=== PATIENT | male | born 1950 | race Caucasian/White ===

== ENCOUNTER 2019-02-11 09:22 | Outpatient (RCR) | payer OTHER, SELFPAY | END 2019-02-20 23:59 | disposition home or self-care (01) | LOC: INF 09:22 | PROVIDERS: Visit Provider Internal Medicine Hematology & Oncology | DX: R69 Illness, unspecified (principal) ==

== ENCOUNTER 2019-03-19 04:49 | Outpatient (RCR) | payer MEDICARE, OTHER, SELFPAY ==
[2019-03-05 09:57] LABS: Abs Immature Grans 0.01 k/cumm (0.0-0.09); Absolute Basophil Count 0.03 k/cumm (0.0-0.2); Absolute Lymphocyte Count 1.45 k/cumm (1.2-3.4); Absolute Monocyte Count 0.53 k/cumm (0.11-0.7); Absolute Neutrophil Count 2.22 k/cumm (1.2-6.7); Basophils % 0.7; Eosinophils % 4.5; HCT 37.1 % (40.0-50.0); HGB 11.6 g/dL (13.5-17.5); Immature Grans % 0.2; Lymphocytes % 32.7; Mean Corp. HGB Concentration 31.3 g/dL (32.0-36.0); Mean Corpuscular Hemoglobin 27.2 pg (27.0-33.0); Mean Corpuscular Volume 86.9 fL (80-95); Monocytes % 11.9; Platelet Count 197 x1000/uL (130-400); RBC 4.27 m/cumm (4.50-6.00); White Blood Cell Count 4.44 k/cumm (4.4-10.8)
[2019-03-05 10:07] LABS: ALT 27 U/L (16-63); AST 25 U/L (15-37); Albumin 3.5 g/dL (3.4-5.0); Alkaline Phosphatase 86 U/L (46-116); BUN 16 mg/dL (7-18); Bilirubin, Total 0.5 mg/dL (0.2-1.0); CREATININE 0.97 mg/dL (0.70-1.30); Chloride 105 mmol/L (98-107); Glucose 140 mg/dL (74-106); Potassium 3.6 mmol/L (3.5-5.1); Sodium 142 mmol/L (136-145); Total Protein 7.3 g/dL (6.4-8.2)
[2019-03-05] MEDS: Heparin 500 UNITS/5 ML SYRINGE IV (10:23)
[2019-03-05] MEDS: Normal Saline Flush 10 ML SYR IVP (10:23)
[2019-03-12] MEDS: Heparin 500 UNITS/5 ML SYRINGE IV (07:45)
[2019-03-12] MEDS: Normal Saline Flush 10 ML SYR IVP (07:45)
[2019-03-12 08:03] LABS: Abs Immature Grans 0.01 k/cumm (0.0-0.09); Absolute Basophil Count 0.01 k/cumm (0.0-0.2); Absolute Eosinophil Count 0.23 k/cumm (0.0-0.7); Absolute Lymphocyte Count 0.78 k/cumm (1.2-3.4); Absolute Monocyte Count 0.59 k/cumm (0.11-0.7); Absolute Neutrophil Count 3.47 k/cumm (1.2-6.7); Basophils % 0.2; Eosinophils % 4.5; HCT 34.6 % (40.0-50.0); HGB 10.9 g/dL (13.5-17.5); Immature Grans % 0.2; Lymphocytes % 15.3; Mean Corp. HGB Concentration 31.5 g/dL (32.0-36.0); Mean Corpuscular Volume 88.9 fL (80-95); Mean Platelet Volume 10.2 fL (8.0-11.0); Monocytes % 11.6; Neutrophils % 68.2; Platelet Count 138 x1000/uL (130-400); RBC 3.89 m/cumm (4.50-6.00); RBC Distribution Width 17.8 % (11.8-14.1); White Blood Cell Count 5.09 k/cumm (4.4-10.8)
[2019-03-12 08:20] LABS: ALT 16 U/L (16-63); AST 16 U/L (15-37); Albumin 3.4 g/dL (3.4-5.0); Alkaline Phosphatase 75 U/L (46-116); BUN 24 mg/dL (7-18); Bilirubin, Total 0.4 mg/dL (0.2-1.0); CREATININE 0.81 mg/dL (0.70-1.30); Calcium 9.2 mg/dL (8.5-10.1); Chloride 106 mmol/L (98-107); Glucose 201 mg/dL (74-106); Potassium 3.8 mmol/L (3.5-5.1); Sodium 142 mmol/L (136-145); Total Protein 7.1 g/dL (6.4-8.2)
[2019-03-19] MEDS: Normal Saline Flush 10 ML SYR IVP (09:15)
[2019-03-19] MEDS: Heparin 500 UNITS/5 ML SYRINGE IV (09:16)
[2019-03-19 09:28] LABS: Abs Immature Grans 0.01 k/cumm (0.0-0.09); Absolute Basophil Count 0.01 k/cumm (0.0-0.2); Absolute Eosinophil Count 0.31 k/cumm (0.0-0.7); Absolute Monocyte Count 0.68 k/cumm (0.11-0.7); Absolute Neutrophil Count 3.37 k/cumm (1.2-6.7); Basophils % 0.2; HCT 34.6 % (40.0-50.0); Immature Grans % 0.2; Lymphocytes % 15.4; Mean Corp. HGB Concentration 31.8 g/dL (32.0-36.0); Mean Corpuscular Hemoglobin 28.6 pg (27.0-33.0); Mean Corpuscular Volume 89.9 fL (80-95); Mean Platelet Volume 9.7 fL (8.0-11.0); Monocytes % 13.1; Neutrophils % 65.1; Platelet Count 136 x1000/uL (130-400); RBC 3.85 m/cumm (4.50-6.00); RBC Distribution Width 18.1 % (11.8-14.1); White Blood Cell Count 5.18 k/cumm (4.4-10.8)
[2019-03-19 09:41] LABS: ALT 18 U/L (16-63); AST 15 U/L (15-37); Albumin 3.3 g/dL (3.4-5.0); Alkaline Phosphatase 81 U/L (46-116); Anion Gap 5.5 mmol/L (3-11); BUN 15 mg/dL (7-18); Bilirubin, Total 0.3 mg/dL (0.2-1.0); CO2 30.5 mmol/L (21.0-32.0); CREATININE 0.99 mg/dL (0.70-1.30); Calcium 8.3 mg/dL (8.5-10.1); Chloride 104 mmol/L (98-107); Glucose 141 mg/dL (74-106); Potassium 3.8 mmol/L (3.5-5.1); Sodium 140 mmol/L (136-145); Total Protein 7.1 g/dL (6.4-8.2)
== END 2019-03-23 23:59 | disposition home or self-care (01) ==
LOC: INF 04:49
PROVIDERS: Visit Provider Internal Medicine Hematology & Oncology
DX: C20 Malignant neoplasm of rectum (principal); Z45.2 Encounter for adjustment and management of vascular access device
CPT/HCPCS: 36591; 80053; 85025

== ENCOUNTER 2019-04-09 02:22 | Outpatient (RCR) | payer MEDICARE, OTHER, SELFPAY ==
[2019-03-26] MEDS: Heparin 500 UNITS/5 ML SYRINGE IV (08:02)
[2019-03-26] MEDS: Normal Saline Flush 10 ML SYR IVP (08:02)
[2019-03-26 08:05] LABS: Abs Immature Grans 0.01 k/cumm (0.0-0.09); Absolute Basophil Count 0.02 k/cumm (0.0-0.2); Absolute Eosinophil Count 0.37 k/cumm (0.0-0.7); Absolute Lymphocyte Count 0.45 k/cumm (1.2-3.4); Absolute Monocyte Count 0.74 k/cumm (0.11-0.7); Absolute Neutrophil Count 7.41 k/cumm (1.2-6.7); Basophils % 0.2; Eosinophils % 4.1; HCT 34.8 % (40.0-50.0); HGB 11.2 g/dL (13.5-17.5); Immature Grans % 0.1 %; Mean Corp. HGB Concentration 32.2 g/dL (32.0-36.0); Mean Corpuscular Hemoglobin 29.3 pg (27.0-33.0); Mean Corpuscular Volume 91.1 fL (80-95); Mean Platelet Volume 9.2 fL (8.0-11.0); Monocytes % 8.2; Neutrophils % 82.4; Platelet Count 148 x1000/uL (130-400); RBC 3.82 m/cumm (4.50-6.00); RBC Distribution Width 19.1 % (11.8-14.1)
[2019-03-26 08:19] LABS: ALT 24 U/L (16-63); AST 21 U/L (15-37); Albumin 3.4 g/dL (3.4-5.0); Alkaline Phosphatase 76 U/L (46-116); Anion Gap 7.3 mmol/L (3-11); BUN 22 mg/dL (7-18); Bilirubin, Total 0.4 mg/dL (0.2-1.0); CO2 27.7 mmol/L (21.0-32.0); CREATININE 0.82 mg/dL (0.70-1.30); Calcium 9.1 mg/dL (8.5-10.1); Chloride 105 mmol/L (98-107); Glucose 156 mg/dL (74-106); Potassium 3.8 mmol/L (3.5-5.1); Sodium 140 mmol/L (136-145); Total Protein 6.9 g/dL (6.4-8.2)
[2019-04-01] MEDS: Normal Saline Flush 10 ML SYR IVP (08:17)
[2019-04-01] MEDS: Heparin 500 UNITS/5 ML SYRINGE IV (08:17)
[2019-04-01 08:28] LABS: Abs Immature Grans 0.01 k/cumm (0.0-0.09); Absolute Basophil Count 0.01 k/cumm (0.0-0.2); Absolute Eosinophil Count 0.16 k/cumm (0.0-0.7); Absolute Lymphocyte Count 0.45 k/cumm (1.2-3.4); Absolute Monocyte Count 0.35 k/cumm (0.11-0.7); Basophils % 0.3; Eosinophils % 5.6; HCT 34.9 % (40.0-50.0); HGB 11.3 g/dL (13.5-17.5); Immature Grans % 0.3 %; Lymphocytes % 15.6; Mean Corp. HGB Concentration 32.4 g/dL (32.0-36.0); Mean Corpuscular Hemoglobin 29.7 pg (27.0-33.0); Mean Corpuscular Volume 91.8 fL (80-95); Mean Platelet Volume 9.2 fL (8.0-11.0); Monocytes % 12.2; Platelet Count 158 x1000/uL (130-400); RBC Distribution Width 19.8 % (11.8-14.1); White Blood Cell Count 2.88 k/cumm (4.4-10.8)
[2019-04-01 08:47] LABS: ALT 24 U/L (16-63); AST 21 U/L (15-37); Albumin 3.5 g/dL (3.4-5.0); Alkaline Phosphatase 66 U/L (46-116); Anion Gap 7.6 mmol/L (3-11); BUN 20 mg/dL (7-18); Bilirubin, Total 0.6 mg/dL (0.2-1.0); CO2 30.4 mmol/L (21.0-32.0); CREATININE 0.91 mg/dL (0.70-1.30); Calcium 8.9 mg/dL (8.5-10.1); Chloride 105 mmol/L (98-107); Glucose 224 mg/dL (74-106); Potassium 3.6 mmol/L (3.5-5.1); Sodium 143 mmol/L (136-145)
[2019-04-09] MEDS: Heparin 500 UNITS/5 ML SYRINGE IV (08:12)
[2019-04-09] MEDS: Normal Saline Flush 10 ML SYR IVP (08:12)
[2019-04-09 08:19] LABS: Absolute Basophil Count 0.01 k/cumm (0.0-0.2); Absolute Eosinophil Count 0.25 k/cumm (0.0-0.7); Absolute Lymphocyte Count 0.48 k/cumm (1.2-3.4); Absolute Monocyte Count 0.55 k/cumm (0.11-0.7); Absolute Neutrophil Count 1.94 k/cumm (1.2-6.7); Basophils % 0.3; Eosinophils % 7.7; HCT 35.3 % (40.0-50.0); HGB 11.6 g/dL (13.5-17.5); Lymphocytes % 14.9; Mean Corp. HGB Concentration 32.9 g/dL (32.0-36.0); Mean Corpuscular Hemoglobin 30.3 pg (27.0-33.0); Mean Corpuscular Volume 92.2 fL (80-95); Mean Platelet Volume 9.4 fL (8.0-11.0); Neutrophils % 60.1; Platelet Count 160 x1000/uL (130-400); RBC 3.83 m/cumm (4.50-6.00); RBC Distribution Width 19.5 % (11.8-14.1); White Blood Cell Count 3.23 k/cumm (4.4-10.8)
[2019-04-09 08:25] LABS: ALT 27 U/L (16-63); AST 23 U/L (15-37); Albumin 3.6 g/dL (3.4-5.0); Alkaline Phosphatase 70 U/L (46-116); Anion Gap 6.1 mmol/L (3-11); BUN 12 mg/dL (7-18); Bilirubin, Total 0.6 mg/dL (0.2-1.0); CO2 29.9 mmol/L (21.0-32.0); CREATININE 0.92 mg/dL (0.70-1.30); Calcium 8.7 mg/dL (8.5-10.1); Chloride 105 mmol/L (98-107); Glucose 151 mg/dL (74-106); Potassium 3.5 mmol/L (3.5-5.1); Sodium 141 mmol/L (136-145); Total Protein 6.9 g/dL (6.4-8.2)
== END 2019-04-23 23:59 | disposition home or self-care (01) ==
LOC: INF 02:22
PROVIDERS: Visit Provider Internal Medicine Hematology & Oncology
DX: C20 Malignant neoplasm of rectum (principal); Z45.2 Encounter for adjustment and management of vascular access device
CPT/HCPCS: 36591; 80053; 85025